=== PATIENT | male | born 1965 | race Caucasian/White ===

== ENCOUNTER → 2017-01-04 | Outpatient (CLI) | payer OTHER ==
[~2017-01-04] VITALS: Ht 180.3 cm; Wt 152.4 kg
[~2017-01-04] MED LIST: ASPI325T24 PO; IBUP80TA PO; LANS15CA PO; LEVO112T2 PO; LEVO200T4 PO; LIDOCAINE 2% INJ 100 MG/5 ML SDV (FOR ANES.) As Ordered ONE; LOSA100T36 PO; MELA3TAB49 PO; MULT1CHW44 PO; NATU400T PO; NS 1,000 ML IV SCH; PROPOFOL 200 MG/20 ML VIAL As Ordered ONE; VITA2000 PO
--- NOTE | 2017-01-04 13:10 | ROOR ---
Patient Name: Oswald Antonio Procedure Date: 01/04/2017 12:52 PM Date of : 1965 Age: 51 Room: [facility] Gender: Male Note Status: Finalized Procedure: Colonoscopy Indications: Screening for colorectal malignant neoplasm Providers: Francisco TREJO MD Referring MD: JADE OMRROW MD Requesting Provider: Medicines: Monitored Anesthesia Care Complications: No immediate complications. Procedure: Pre-Anesthesia Assessment: - The heart rate, respiratory rate, oxygen saturations, blood pressure, adequacy of pulmonary ventilation, and response to care were monitored throughout the procedure. The Colonoscope was introduced through the anus and advanced to the cecum, identified by appendiceal orifice and ileocecal valve. The colonoscopy was performed without difficulty. The patient tolerated the procedure well. The quality of the bowel preparation was good. Findings: The perianal and digital rectal examinations were normal. Small Internal Hemorrhoids. The entire examined colon appeared normal on direct and retroflexion views. Impression: - Small Internal Hemorrhoids. - The entire colon is normal on direct and retroflexion views. - No specimens collected. Recommendation: - Repeat colonoscopy in 10 years for screening purposes. Francisco Trejo MD Francisco TREJO MD 01/04/2017 1:10:31 PM This report has been signed electronically. Number of Addenda: 0 Note Initiated On: 01/04/2017 12:52 PM Estimated Blood Loss: Estimated blood loss: none.
[2017-01-04 13:40] VITALS: BP 146/77
== END | disposition home or self-care (01) ==
LOC: M OPP 11:09
PROVIDERS: ATTEND Internal Medicine Gastroenterology
DX: Z12.11 Encounter for screening for malignant neoplasm of colon (principal); K64.8 Other hemorrhoids; I10 Essential (primary) hypertension; E78.00 Pure hypercholesterolemia, unspecified; E03.9 Hypothyroidism, unspecified; K21.9 Gastro-esophageal reflux disease without esophagitis; D64.9 Anemia, unspecified; G47.30 Sleep apnea, unspecified; M16.11 Unilateral primary osteoarthritis, right hip; Z79.899 Other long term (current) drug therapy

== ENCOUNTER → 2017-05-29 | Outpatient (CLI) | payer OTHER ==
[~2017-05-29] MED LIST changes: -LIDOCAINE 2% INJ 100 MG/5 ML SDV (FOR ANES.) As Ordered ONE; -NS 1,000 ML IV SCH; -PROPOFOL 200 MG/20 ML VIAL As Ordered ONE
--- NOTE | 2017-05-29 10:52 | REP ---
HIDA SCAN AND GALLBLADDER EJECTION FRACTION: Following the intravenous administration of 6.6 mCi technetium 99m mebrofenin, multiple images of the right upper quadrant are performed every 5 minutes for a period of 1 hour. There is [id number] transit at about 15 minutes postinjection. Gallbladder is visualized at 30 minutes postinjection with no scintigraphic evidence of cholecystitis. At the 1-hour farhad, 8 ounces of Ensure Enlive is ingested, and further imaging performed for 1 hour. Gallbladder activity is measured, and the gallbladder ejection fraction is calculated to be 33%, which is slightly below lower limits of normal of 35%. IMPRESSION: No scintigraphic evidence of cholecystitis. Gallbladder ejection fraction is 33%. A normal gallbladder ejection fraction is greater than 35%. Signed by Agapito Verdugo MD 05/29/2017 05:23 P
== END ==
LOC: M RAD 07:43
PROVIDERS: ATTEND Physician Assistant
DX: R10.11 Right upper quadrant pain (principal)

== ENCOUNTER → 2022-02-21 | Outpatient (CLI) | payer OTHER ==
[~2022-02-21] MED LIST changes: +ASPI-255 PO; -ASPI325T24 PO; +ATOR1TAB21 PO; +FISH1CAP26 PO; -LOSA100T36 PO; +LOSA100T45 PO; +RA M500C PO
== END ==
LOC: M SOG 08:28
PROVIDERS: ATTEND Physician Assistant
DX: M19.042 Primary osteoarthritis, left hand (principal)

== ENCOUNTER 2022-02-27 07:08 | Day surgery (SDC) | payer OTHER ==
[~2022-02-27] VITALS: Ht 180.3 cm; Wt 175.5 kg
[~2022-02-27 07:08] MED LIST changes: +LIDOCAINE W/EPINEPHRINE 1% 20ML VIAL XX ONE; +SODIUM BICARBONATE 8.4% INJ 50MEQ 50 ML VIAL XX ONE
[2022-02-27] MEDS ORDERED: BUPIVACAINE HCL 0.25% 30ML VIAL As Ordered ONE (08:18)
[2022-02-27] MEDS ORDERED: BACITRACIN OINTMENT 30GM TUBE As Ordered ONE (08:18)
[2022-02-27 08:58] VITALS: BP 199/105
== END 2022-02-27 09:17 | disposition home or self-care (01) ==
LOC: M SDC 07:08
PROVIDERS: ATTEND Orthopaedic Surgery Hand Surgery
DX: D36.12 Benign neoplasm of peripheral nerves and autonomic nervous system, upper limb, including shoulder (principal); Z88.8 Allergy status to other drugs, medicaments and biological substances